=== PATIENT | female | born 1980 | race Caucasian/White ===

== ENCOUNTER 2017-04-06 02:11 | Emergency (ER) | payer OTHER, BC ==
[~2017-04-06] VITALS: Ht 182.9 cm; Wt 159.1 kg
[2017-04-06 02:13] VITALS: TEMP 36.6; Ht 182.9 cm; Wt 159.1 kg
[2017-04-06] MEDS ORDERED: ALBUT/IPRATROP 3MG/0.5MG NEB 3 ML VIAL INH STA (02:20)
[2017-04-06] MEDS ORDERED: ALBU18002 INH (02:34)
[2017-04-06] MEDS ORDERED: CETI10TA84 PO (02:35)
[2017-04-06] MEDS ORDERED: MONT1TAB3 PO (02:35)
[2017-04-06] MEDS ORDERED: ALBUT/IPRATROP 3MG/0.5MG NEB 3 ML VIAL INH ONE (03:00)
--- NOTE | 2017-04-06 04:07 | EMERGENCY ROOM VISIT NOTE ---
History Report prepared by Temo: Dorota Franks Under the Supervision of: Dr. Kari Sprague D.O. First contact with patient: 02:20 Chief Complaint: RESPIRATORY PROBLEMS Stated Complaint: ASTHMA ATTACK History of Present Illness The patient is a 36 year old female who presents to the Emergency Room with complaints of persistent difficulty breathing starting earlier today. The patient has a history of allergy induced asthma and cold urticaria. She traveled here from [place] [facility]. She spent today in a house with dogs and the weather is colder here. She is having difficulty breathing. She has tried using her inhaler to no relief. She has ProAir and Singulair at home. She has steroids around 2 times a year for asthma. She has some tightness in her throat and discomfort in her back. This feels like her previous asthma exacerbations. She denies any nausea, chest pain, dizziness, lightheadedness, leg swelling, trouble with bowel movements, or urinary symptoms. She has had asthma since age 15. She does not have a family history of asthma. Source of History: patient Onset: earlier today Position: other (global) Quality: other (difficulty breathing, asthma) Timing: other (persistent) Associated Symptoms: + back pain, No nausea, No urinary symptoms Note: Pt reports throat tightness. Pt denies dizziness, lightheadedness, leg swelling , change in bowel movements. Review of Systems See HPI for pertinent positives & negatives. A total of 10 systems reviewed and were otherwise negative. 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 Social History Smoking Status: Current Some Day Smoker Occupation Status: employed Current/Historical Medications Scheduled Cetirizine (Zyrtec), 10 MG PO DAILY Montelukast Sodium (Singulair), 10 MG PO DAILY Prednisone (Prednisone Tab), 3 TAB PO DAILY Scheduled PRN Albuterol Sulfate (Proair Respiclick), 2 PUFFS INH DIRECTED PRN for SOB/ Wheezing Allergies Coded Allergies: Passion Fruit Flavor (Verified Allergy, Unknown, anaphylaxis, 04/06/17) Pecan (Verified Allergy, Unknown, throat swelling, 04/06/17) Physical Exam Vital Signs Date Time Temp Pulse Resp B/P (MAP) Pulse Ox O2 Delivery O2 Flow Rate FiO2 04/06/17 05:39 78 16 135/76 98 04/06/17 05:31 97 16 134/85 95 04/06/17 05:16 112 18 94 04/06/17 05:01 102 15 124/79 98 04/06/17 04:46 109 24 93 04/06/17 04:31 96 17 117/64 97 04/06/17 04:16 95 14 97 04/06/17 04:01 102 21 130/85 98 04/06/17 03:46 101 19 98 04/06/17 03:41 92 18 98 04/06/17 03:31 113/68 04/06/17 03:26 100 17 98 04/06/17 03:23 126/76 04/06/17 03:11 102 16 97 Room Air 04/06/17 03:10 107 04/06/17 02:13 36.6 120 25 148/86 93 Room Air Physical Exam GENERAL: alert, well appearing, well nourished, no distress, non-toxic, obese EYE EXAM: normal conjunctiva, PERRL and EOM's grossly intact OROPHARYNX: no exudate, no erythema, lips, buccal mucosa, and tongue normal and mucous membranes are moist NECK: supple, no nuchal rigidity, no adenopathy, non-tender LUNGS: Decreased breath sounds bilaterally. Bilateral expiratory wheeze. Talking in full sentences. Normal chest wall mechanics HEART: no murmurs, S1 normal and S2 normal ABDOMEN: abdomen soft, non-tender, normo-active bowel sounds, no masses, no rebound or guarding. BACK: Back is symmetrical on inspection and there is no deformity, no midline tenderness, no CVA tenderness. SKIN: no rashes and no bruising UPPER EXTREMITIES: upper extremities are grossly normal. LOWER EXTREMITIES: No pitting edema. NEURO EXAM: Normal sensorium, cranial nerves II-XII grossly intact, normal speech, no gross weakness of arms, no gross weakness of legs. Medical Decision & Procedures Medications Administered Medications (Trade) Dose Ordered Sig/Kiersten Route Start Time Stop Time Status Last Admin Dose Admin Albuterol/ Ipratropium (Duoneb) 3 ml NOW STAT INH 04/06/17 02:20 04/06/17 02:22 DC 04/06/17 02:32 3 ML Albuterol/ Ipratropium (Duoneb) 12 ml ONE ONCE INH 04/06/17 03:00 04/06/17 03:01 DC 04/06/17 03:23 12 ML Prednisone (PredniSONE TAB) 60 mg NOW STAT PO 04/06/17 02:53 04/06/17 02:54 DC 04/06/17 03:05 60 MG ED Course 0220: Duoneb 3 ml INH. 0226: The patient was evaluated in room B7. A complete history and physical exam was performed. 0252: I reevaluated the patient. She is stable. 0253: Prednisone 60 mg PO. 0300: Duoneb 12 ml INH. 0339: I reevaluated the patient. She reports feeling better. She is starting to move air better on repeat lung exam. 0454: I reevaluated the patient. She is moving air much better. She has some tiny scattered expiratory wheeze. I discussed the findings and the treatment plan with the patient. She verbalizes agreement and understanding. She was discharged home. Medical Decision Differential diagnoses includes but is not limited to pneumonia, bronchitis, COPD/Asthma exacerbation, pneumothorax, pulmonary embolism, congestive heart failure, acute coronary syndrome Patient with no risk factors for ACS. Patient's symptoms began after arrival here and exposure to cold weather and picked and her. Patient states is similar to prior asthma exacerbations. Patient improved here with nebulizer treatments. Patient not hypoxic. Vital signs otherwise stable. Mild tachycardia noted above patient getting breathing treatments. I do not suspect PE despite recent travel. Patient with no additional risk factors. Repeat lung exams were improved I have a low suspicion for occult pneumonia. Discussed with patient use of MDI/spacer, steroids, symptoms watch and return for, she verbalized understanding was agreeable with plan. Patient initially tachycardic due to increased work of breathing, tachycardia improved as work of breathing decreased. Medication Reconcilliation Current Medication List: was personally reviewed by me Blood Pressure Screening Patient's blood pressure: Normal blood pressure Blood pressure disposition: Did not require urgent referral Impression Primary Impression: Asthma exacerbation Additional Impression: Allergy to dogs Scribe Attestation The scribe's documentation has been prepared under my direction and personally reviewed by me in its entirety. I confirm that the note above accurately reflects all work, treatment, procedures, and medical decision making performed by me. Departure Information Dispostion Home / Self-Care Prescriptions Prednisone (Prednisone Tab) 20 Mg Tab 3 TAB PO DAILY, #12 TAB FOR 4 DAYS Prov: Kari Sprague, 04/06/17 Referrals No Doctor, Assigned (PCP) Patient Instructions Asthma - [facility], [facility], [facility] Additional Instructions Please keep your inhaler with you at all times and use the spacer with the inhaler. You may use the inhaler up to every 4 hours as needed for wheezing, trouble breathing, or chest tightness. Please take the steroids as prescribed. Please continue taking your daily allergy medication. If you have any recurrent episodes of trouble breathing or wheezing that do not respond to your inhaler, develop chest pain, fevers, vomiting, dizziness, or any other new concerns, please return the emergency room. Please try and avoid any triggers for your allergies or asthma including weather and environmental exposures. Problem Qualifiers Primary Impression: Asthma exacerbation Asthma severity: moderate Asthma persistence: unspecified Qualified Codes: J45.901 - Unspecified asthma with (acute) exacerbation
[2017-04-06] MEDS ORDERED: PRED20TA2 PO (05:31)
[2017-04-06 05:39] VITALS: BP 135/76; PULSE 78; O2SAT 98
== END 2017-04-06 05:41 | disposition home or self-care (01) ==
LOC: C.EDB 02:13
DX: J45.901 Unspecified asthma with (acute) exacerbation (principal); J30.81 Allergic rhinitis due to animal (cat) (dog) hair and dander; F17.210 Nicotine dependence, cigarettes, uncomplicated; Z79.899 Other long term (current) drug therapy